=== PATIENT | female | born 1995 | race Caucasian/White ===

== ENCOUNTER 2018-07-22 23:21 | Emergency (ER) | payer BC ==
[~2018-07-22] VITALS: Ht 162.6 cm; Wt 56.7 kg
[2018-07-22] MEDS ORDERED: LEXAPRO5 MG PO (23:33)
[2018-07-23] MEDS ORDERED: OMEPRAZOLE20 M1 PO (01:21)
[2018-07-23 01:28] VITALS: BP 101/62
--- NOTE | 2018-07-23 08:25 | EKG ---
[address] [address] ELECTROCARDIOGRAM REPORT Name: SANTIAGO DURON Room #: DEP WILBERT Rivera#: [id number] ������������������ Admission: 07/22/18 ������������������ Attend Phys: Discharge: 07/23/18 ������������������ Date of : [birth year] Report #: [id number] ����������������������������������������������������������������� [id number] THIS REPORT FOR: //name// [facility] ED Test Date: 2018-07-22 Test Time: 23:54:16 Pat Name: SANTIAGO DURON Department: Patient ID: [id number]- Room: Gender: F Chancellor: BRADLEY : 1995 Requested By: Kolby Steve Order Number: [id number] MD: Chance Ernst Measurements Intervals [place] Rate: 91 P: 75 MN: 142 QRS: 31 QRSD: 100 T: 10 QT: 378 QTc: 466 Interpretive Statements Sinus rhythm No previous ECG available for comparison Electronically Signed On 07-23-2018 8:25:24 CDT by Chance Ernst [email or web address] ��������������������������������������������� <ELECTRONICALLY SIGNED> ���������������������������������������� By: Chance Ernst MD ��������������������������������������������� 07/23/18 0825 [id number] [id number] Chance Ernst MD /EPI
== END 2018-07-23 01:31 | disposition home or self-care (01) ==
LOC: ER 23:21
DX: R07.89 Other chest pain (principal); Z88.6 Allergy status to analgesic agent